=== PATIENT | female | born 1980 | race Caucasian/White ===

== ENCOUNTER 2018-06-22 06:52 | Inpatient (IN) | payer OTHER ==
[2018-06-22] MEDS: SOD CHLORIDE 0.9% 1,000 ML IV (06:00)
[~2018-06-22 06:52] MED LIST: CEFAZOLIN 1 GM/50 ML (PMX) 50 ML IVPB
[2018-06-22 07:43] LABS: ADD MAN DIFF? NO
[2018-06-22 07:45] LABS: BASOPHILS % 0.3 % (0.0-2.0); EOSINOPHILS # 0.4 10^3/ul (0.0-0.5); EOSINOPHILS % 4.1 % (0.0-7.0); HEMATOCRIT 35.7 % (37.0-47.0); HEMOGLOBIN 11.6 g/dl (12.0-16.0); LYMPHOCYTES % 20.9 % (15.0-51.0); MEAN CORPUSCULAR HEMOGLOBIN 26.6 pg (29.0-33.0); MEAN CORPUSCULAR HGB CONC 32.5 g/dl (32.0-37.0); MEAN CORPUSCULAR VOLUME 81.9 fl (82.0-101.0); MEAN PLATELET VOLUME 10.1 fl (7.4-10.4); MONOCYTE # 0.4 10^3/ul (0.3-0.9); MONOCYTES % 4.3 % (0.0-11.0); NEUTROPHIL # 6.6 10^3/ul (1.6-7.5); NEUTROPHILS % 70.1 % (39.0-77.0); PLATELET COUNT 286 10^3/UL (140-415); RED BLOOD COUNT 4.36 10^6/ul (4.20-5.40); RED CELL DISTRIBUTION WIDTH 14.6 % (11.5-14.5)
[2018-06-22 07:45] LABS: WHITE BLOOD COUNT 9.3 10^3/ul (4.8-10.8)
[2018-06-22] MEDS ORDERED: HYDROmorphONE 2 MG/ML SYG (07:47)
[2018-06-22] MEDS ORDERED: PROPOFOL 20 ML (07:47)
[2018-06-22] MEDS ORDERED: ROCURONIUM 50 MG INJ (07:47)
[2018-06-22] MEDS ORDERED: LIDOCAINE 2% (SDV) 5 ML INJ (07:47)
[2018-06-22] MEDS ORDERED: MIDAZOLAM 1 MG/ML 2 ML INJ ×2 (07:47→09:55)
[2018-06-22] MEDS ORDERED: CEFAZOLIN 1 GM INJ (07:48)
[2018-06-22 08:00] LABS: BARBITURATES Negative (NEGATIVE); BENZODIAZEPINES Negative (NEGATIVE); CANNABINOIDS Negative (NEGATIVE); COCAINE Positive (NEGATIVE)
[2018-06-22 08:01] LABS: OPIATES Positive (NEGATIVE)
[2018-06-22 08:09] LABS: ANION GAP 6 (5-13); BLOOD UREA NITROGEN 18 mg/dl (7-20); CARBON DIOXIDE 30 mmol/L (21-31); CHLORIDE 103 mmol/L (97-110); CREATININE 0.66 mg/dl (0.44-1.00); Estimated GFR > 60 mL/min (>60); GLUCOSE 88 mg/dl (70-220); SODIUM 139 mmol/L (135-144)
[2018-06-22 08:11] LABS: PROTIME 12.3 Sec (11.9-14.9)
[2018-06-22 08:12] LABS: PARTIAL THROMBOPLASTIN TIME 30.3 Sec (23.0-35.0)
[2018-06-22 08:31] LABS: AMPHETAMINE/METHAMPHETAMINE POSITIVE (NEGATIVE)
[2018-06-22] MEDS ORDERED: DEXAMETHASONE 4 MG/ML 5 ML INJ (08:35)
[2018-06-22] MEDS ORDERED: ONDANSETRON 4 MG INJ (08:35)
[2018-06-22] MEDS ORDERED: morphine (1 MG/ML) 10ML SYRINGE IV ×3 (09:00)
[2018-06-22] MEDS ORDERED: ONDANSETRON 4 MG INJ IV ×2 (09:00→14:30)
[2018-06-22] MEDS ORDERED: ALBUTEROL 0.083% (NEB) 2.5 MG/3 ML AMP HHN (09:00)
[2018-06-22] MEDS ORDERED: OXYCODONE/ACETAMINOPHEN (5/325) TAB PO (09:00)
[2018-06-22] MEDS ORDERED: ESMOLOL 10 ML (09:10)
[2018-06-22] MEDS ORDERED: SUGAMMADEX SODIUM 200 MG/2 ML VIAL IV (09:11)
[2018-06-22] MEDS ORDERED: morphine 2 MG INJ IV ×3 (10:00→10:18)
[2018-06-22] MEDS ORDERED: DIPHENHYDRAMINE 50 MG INJ IV (10:00)
[2018-06-22] MEDS: MEPERIDINE 25 MG INJ IV (10:16)
[2018-06-22] MEDS: morphine 2 MG INJ IV ×3 (10:22→11:27)
[2018-06-22] MEDS: MIDAZOLAM 1 MG/ML 2 ML INJ IV (10:25)
[2018-06-22] MEDS: OXYCODONE/ACETAMINOPHEN (5/325) TAB PO (11:47)
[2018-06-22] MEDS ORDERED: morphine 1 MG/ML 30 ML (PCA) IV ×2 (12:00→16:30)
[2018-06-22] MEDS ORDERED: LORAZEPAM 2 MG INJ IV ×2 (12:30→18:30)
[2018-06-22] MEDS ORDERED: NALOXONE (0.4 MG/ML) INJ IV (12:30)
[2018-06-22] MEDS: morphine 1 MG/ML 30 ML (PCA) IV (12:36)
[2018-06-22] MEDS: D5W-0.45 NACL + KCL 20 MEQ 1,000 ML IV ×3 (13:39→23:18)
[2018-06-22] MEDS: ACETAMINOPHEN 1000MG/100ML IV 100 ML IVPB (14:00)
[2018-06-22] MEDS ORDERED: ENALAPRILAT 1.25 MG INJ IV (14:30)
[2018-06-22] MEDS ORDERED: NACL 0.9% 3 ML SYG IV (14:30)
[2018-06-22] MEDS ORDERED: hydrALAzine 20 MG INJ IV (14:30)
[2018-06-22] MEDS ORDERED: MIDAZOLAM 1 MG/ML 2 ML INJ IV (16:30)
[2018-06-22] MEDS: METHADONE (1 MG/ML 5 ML PO UD SYG) PO ×2 (18:06→21:55)
[2018-06-22] MEDS: FENTAnyl (DRIP) 1000 mcg/100mL 100 ML IV (18:16)
[2018-06-22] MEDS ORDERED: GABAPENTIN 300 MG CAP PO (21:00)
[2018-06-23] MEDS: METHADONE (1 MG/ML 5 ML PO UD SYG) PO ×5 (02:01→20:05)
[2018-06-23] MEDS: D5W-0.45 NACL + KCL 20 MEQ 1,000 ML IV ×2 (08:13→17:01)
[2018-06-23] MEDS: NICOTINE (21 MG/24 HR) PATCH TRANSDERM (08:13)
[2018-06-23] MEDS ORDERED: ACETAMINOPHEN 325 MG TAB PO (10:00)
[2018-06-23] MEDS: HYDROmorphONE 2 MG/ML SYG IV ×4 (10:21→21:59)
[2018-06-23] MEDS: LORAZEPAM 2 MG INJ IV ×2 (12:30→20:05)
[2018-06-23] MEDS: ONDANSETRON 4 MG INJ IV (18:30)
[2018-06-24] MEDS: D5W-0.45 NACL + KCL 20 MEQ 1,000 ML IV (02:21)
[2018-06-24] MEDS: HYDROmorphONE 2 MG/ML SYG IV ×2 (02:26→08:10)
[2018-06-24] MEDS ORDERED: MAGNESIUM HYDROXIDE 30ML CUP PO (03:00)
[2018-06-24] MEDS: LORAZEPAM 2 MG INJ IV ×3 (03:51→18:19)
[2018-06-24 05:19] LABS: ADD MAN DIFF? NO
[2018-06-24 05:26] LABS: BASOPHILS % 0.5 % (0.0-2.0); EOSINOPHILS # 0.3 10^3/ul (0.0-0.5); EOSINOPHILS % 3.4 % (0.0-7.0); LYMPHOCYTES # 2.8 10^3/ul (0.8-2.9); LYMPHOCYTES % 34.1 % (15.0-51.0); MEAN CORPUSCULAR HEMOGLOBIN 26.7 pg (29.0-33.0); MEAN CORPUSCULAR HGB CONC 32.4 g/dl (32.0-37.0); MEAN CORPUSCULAR VOLUME 82.5 fl (82.0-101.0); MEAN PLATELET VOLUME 10.4 fl (7.4-10.4); MONOCYTE # 0.6 10^3/ul (0.3-0.9); NEUTROPHIL # 4.5 10^3/ul (1.6-7.5); NEUTROPHILS % 54.6 % (39.0-77.0); PLATELET COUNT 268 10^3/UL (140-415); RED BLOOD COUNT 4.12 10^6/ul (4.20-5.40); RED CELL DISTRIBUTION WIDTH 14.8 % (11.5-14.5)
[2018-06-24 05:26] LABS: WHITE BLOOD COUNT 8.2 10^3/ul (4.8-10.8)
[2018-06-24] MEDS: METHADONE (1 MG/ML 5 ML PO UD SYG) PO ×3 (08:08→21:33)
[2018-06-24] MEDS: SENNA TAB PO ×2 (08:09→21:33)
[2018-06-24] MEDS: NICOTINE (21 MG/24 HR) PATCH TRANSDERM (08:09)
[2018-06-24] MEDS: HYDROmorphONE 1 MG/ML SYG IV ×3 (11:23→20:29)
[2018-06-25] MEDS: HYDROmorphONE 1 MG/ML SYG IV ×3 (04:32→10:37)
[2018-06-25 05:52] LABS: ADD MAN DIFF? NO
[2018-06-25 06:01] LABS: BASOPHILS % 0.4 % (0.0-2.0); EOSINOPHILS # 0.5 10^3/ul (0.0-0.5); EOSINOPHILS % 4.9 % (0.0-7.0); HEMATOCRIT 38.6 % (37.0-47.0); HEMOGLOBIN 12.5 g/dl (12.0-16.0); LYMPHOCYTES # 3.8 10^3/ul (0.8-2.9); LYMPHOCYTES % 41.7 % (15.0-51.0); MEAN CORPUSCULAR HEMOGLOBIN 26.5 pg (29.0-33.0); MEAN CORPUSCULAR HGB CONC 32.4 g/dl (32.0-37.0); MEAN PLATELET VOLUME 10.5 fl (7.4-10.4); MONOCYTE # 0.7 10^3/ul (0.3-0.9); MONOCYTES % 7.6 % (0.0-11.0); NEUTROPHIL # 4.1 10^3/ul (1.6-7.5); NEUTROPHILS % 44.9 % (39.0-77.0); PLATELET COUNT 343 10^3/UL (140-415); RED BLOOD COUNT 4.71 10^6/ul (4.20-5.40); RED CELL DISTRIBUTION WIDTH 14.4 % (11.5-14.5)
[2018-06-25 06:01] LABS: WHITE BLOOD COUNT 9.2 10^3/ul (4.8-10.8)
[2018-06-25 06:38] LABS: ANION GAP 9 (5-13); BLOOD UREA NITROGEN 15 mg/dl (7-20); CALCIUM 9.4 mg/dl (8.4-10.2); CARBON DIOXIDE 28 mmol/L (21-31); CHLORIDE 102 mmol/L (97-110); Estimated GFR > 60 mL/min (>60); GLUCOSE 102 mg/dl (70-220); PHOSPHORUS 4.7 mg/dl (2.5-4.9); POTASSIUM 3.9 mmol/L (3.5-5.1); SODIUM 139 mmol/L (135-144)
[2018-06-25] MEDS: METHADONE (1 MG/ML 5 ML PO UD SYG) PO ×2 (08:53→13:00)
[2018-06-25] MEDS: SENNA TAB PO (08:54)
[2018-06-25] MEDS: NICOTINE (21 MG/24 HR) PATCH TRANSDERM (08:54)
[2018-06-25] MEDS: LORAZEPAM 2 MG INJ IV (11:41)
== END 2018-06-25 15:00 | disposition home or self-care (01) | DRG 580 ==
LOC: REC 06:52 → 2NE 06-23 21:29 → MS1 11:26 → REC 12:16 → MS1 13:16 → ICU 17:23
PROC: 0HTU0ZZ Resection of Left Breast, Open Approach (ICD-10-PCS; principal; 2018-06-22 08:00)
PROC: 07B60ZX Excision of Left Axillary Lymphatic, Open Approach, Diagnostic (ICD-10-PCS; 2018-06-22 08:00)
DX: C50.912 Malignant neoplasm of unspecified site of left female breast (principal); F11.20 Opioid dependence, uncomplicated; C77.3 Secondary and unspecified malignant neoplasm of axilla and upper limb lymph nodes; F14.20 Cocaine dependence, uncomplicated; F15.20 Other stimulant dependence, uncomplicated; Z17.0 Estrogen receptor positive status [ER+]; I95.81 Postprocedural hypotension; F17.200 Nicotine dependence, unspecified, uncomplicated; G89.29 Other chronic pain
CPT/HCPCS: 80048; 80307; 83735; 84100; 85025; 85610; 85730; 88307; 93005

== ENCOUNTER 2018-10-22 09:37 | Day surgery (SDC) | payer OTHER ==
[2018-10-22] MEDS ORDERED: SOD CHLORIDE 0.9% 1,000 ML IV (11:07)
[2018-10-22] MEDS ORDERED: MIDAZOLAM 1 MG/ML 2 ML INJ (12:23)
[2018-10-22] MEDS ORDERED: LIDOCAINE 1% (MDV) 20 ML INJ (12:23)
[2018-10-22] MEDS ORDERED: FENTAnyl 50 MCG/ML VIAL (12:23)
[2018-10-22] MEDS ORDERED: HYDROmorphONE 0.5 MG/0.5 ML SYG (13:51)
[2018-10-22] MEDS: HYDROmorphONE 0.5 MG/0.5 ML SYG IV (13:58)
== END 2018-10-22 15:50 | disposition home or self-care (01) ==
LOC: SDS 09:37
DX: R16.0 Hepatomegaly, not elsewhere classified (principal); Z85.3 Personal history of malignant neoplasm of breast
CPT/HCPCS: 47000; 76942; 77012